=== PATIENT | female | born 1960 | race Caucasian/White ===

== ENCOUNTER 2021-10-22 13:15 | Outpatient (CLI) | payer OTHER | END 2021-10-22 13:24 | disposition home or self-care (01) | LOC: RAD 13:15 | PROVIDERS: ATTEND Orthopaedic Surgery | DX: R07.9 Chest pain, unspecified (principal) ==

== ENCOUNTER 2023-06-21 10:44 | Outpatient (CLI) | payer OTHER | END 2023-06-21 10:47 | disposition home or self-care (01) | LOC: SONOGRAMA 10:44 | PROVIDERS: ATTEND Pathology Anatomic Pathology & Clinical Pathology | DX: E04.1 Nontoxic single thyroid nodule (principal) ==